=== PATIENT | female | born 1995 | race American Indian/Alaskan Native ===

== ENCOUNTER → 2024-10-12 | Outpatient (CLI) | payer MEDICAID, SELFPAY ==
--- NOTE | 2024-10-12 13:37 | XR_ITS ---
Examination: Bilateral AP knees standing single view AP oblique lateral left knee, AP lateral right knee TECHNIQUE: Bilateral AP knees standing single view flexion AP oblique lateral left knee, AP lateral right knee total 5 views Exam date and time: October 12, 2024 1421 hours INDICATIONS: Left knee pain beginning 3 days ago, rheumatoid arthritis diagnosis FINDINGS: Severe osteopenia Right femur orthopedic hardware Severe tricompartment joint narrowing No fractures IMPRESSION: Severe osteopenia Severe tricompartment joint narrowing
== END | disposition home or self-care (01) ==
PROVIDERS: PCP Physician Assistant; Referring Provider Nurse Practitioner Family; Visit Provider Nurse Practitioner Family
DX: M85.862 Other specified disorders of bone density and structure, left lower leg (principal); M85.861 Other specified disorders of bone density and structure, right lower leg; M25.862 Other specified joint disorders, left knee; M25.861 Other specified joint disorders, right knee
CPT/HCPCS: 73562

== ENCOUNTER 2025-04-20 10:39 | Emergency (ER) | payer MEDICAID, SELFPAY ==
[2025-04-20 10:39] VITALS: BMI 26.6
--- NOTE | 2025-04-20 10:40 | PC.NURSE ---
PT HERE WITH C/O VOMITING TODAY
[2025-04-20 10:41] VITALS: BP 111/57; PULSE 66; RESP 24; TEMP 36.9; O2SAT 100
--- NOTE | 2025-04-20 11:04 | EDNOTE_ITS ---
Nausea/Vomit./Diarrhea-RME/HPI General Chief complaint: Nausea/Vomiting/Diarrhea Stated complaint: NAUSEA/VOMITING Time Seen by Provider: 04/20/25 11:03 Arrival date/time: 04/20/25 10:39 RME / HPI RME / HPI Narrative: See [facility] for Dr. Hankins's HPI documentation. Related Data Previous Rx's ?Medication ?Instructions ?Recorded tramadol 37.5 mg-acetaminophen 325 1 tab PO Q6H PRN pa in #30 tabs 10/25/ mg tablet (Ultracet) ciprofloxacin HCl 500 mg tablet 500 mg PO BID 5 days # 10 tabs 04/20/25 (Cipro) lorazepam 1 mg tablet (Ativan) 1 mg PO BID PRN vomitin g #20 tabs 04/20/25 metronidazole 500 mg tablet 500 mg PO BID 5 days #10 t abs 04/20/25 ondansetron 4 mg disintegrating 4 mg PO TID PRN nausea and 04/20/25 tablet vomiting 30 days #10 tabs Allergies Allergy/AdvReac Type Severity Reaction Status Date / Time No Known Allergies Allergy Verified 04/20/25 10:47 Review of Systems Review of Systems Systems Reviewed: All systems reviewed, normal except as documented Past Medical History Past Medical History GASTROINTESTINAL: Positive Gastrointestinal Disorders (H-PYLORI) MUSCULOSKELETAL: Positive Rheumatoid Arthritis Social History SMOKING STATUS: Never smoker ED Exam Narrative Physical exam: See [facility] for Dr. Hankins's physical exam documentation. Course Quality Measures none Orders Category Date Time Status Bedside COVID-19 Antigen Test NOW Care 04/20/25 11:05 Completed Saline [Insert IV] NOW Care 04/20/25 11:[address] abdomen pelvis wo con Stat Exams 04/20/25 11:07 Completed Alcohol, Blood Medical Stat Lab 04/20/25 11:52 Completed Amylase Stat Lab 04/20/25 11:52 Completed Beta Hydroxybutyrate Stat Lab 04/20/25 11:52 Completed Bilirubin,Direct Stat Lab 04/20/25 11:52 Completed CBC Stat Lab 04/20/25 11:52 Completed CMP [Comprehensive Metabolic Panel] Stat Lab 04/20/25 11:52 Completed HCG,Qualitative Serum Stat Lab 04/20/25 11:52 Completed Influenza A & B Rapid Panel Stat Lab 04/20/25 12:03 Completed Lipase Stat Lab 04/20/25 11:52 Completed Magnesium Stat Lab 04/20/25 11:52 Completed Famotidine Inj [Pepcid Inj] Med 04/20/25 11:07 Discontinued 20 mg IVP X1 ONE Ketorolac Inj [Toradol Inj] Med 04/20/25 11:07 Discontinued 30 mg IVP X1 ONE LORazepam [Ativan Inj] Med 04/20/25 11:06 Discontinued 1 mg IVP X1 ONE LORazepam [Ativan Inj] Med 04/20/25 13:34 Discontinued 1 mg IVP X1 ONE Metoclopramide Inj [Reglan Inj] Med 04/20/25 11:12 Discontinued 10 mg IVP X1 ONE Ondansetron Inj [Zofran Inj] Med 04/20/25 11:07 Discontinued 4 mg IVP X1 ONE Pantoprazole Inj [Protonix Inj] Med 04/20/25 11:07 Discontinued 40 mg IVP X1 ONE Ringers Lactated 1000 ml [Lactated Ringers] 1,000 ml Med 04/20/25 13:35 Discontinued IV 1,000 mls/hr Sodium Chloride 0.9% 1000 ml [Ns] 1,000 ml Med 04/20/25 11:07 Discontinued IV 999 mls/hr cefTRIAXone/D5w 1gm IV premix [Rocephin/D5w 1gm IV Med 04/20/25 13:51 Discontinued premix] 1 gm in 50 ml IV X1 metroNIDAZOLE/NS 500 MG IVPB [Flagyl 500 mg IV] Med 04/20/25 13:51 Discontinued 500 mg in 100 ml IV X1 Vital Signs Vital signs: Vital Signs Temperature 98.5 F 04/20/25 10:41 Pulse Rate 66 04/20/25 10:41 Respiratory Rate 24 H 04/20/25 10:41 Blood Pressure 111/57 L 04/20/25 10:41 Pulse Oximetry (%) 100 04/20/25 10:41 Oxygen Delivery Method Nasal Cannula 04/20/25 10:41 Oxygen Flow Rate 6 04/20/25 10:41 Nausea/Vomiting/Diarrhea MDM Narrative MDM Narrative:: This section includes all my notes and documentations, including HPI, PE, and ED course. Walt Hankins MD HPI: 29-year-old female here with vomiting and abdominal pain and diarrhea since yesterday. Had cholecystectomy and an appendectomy and in the past. No other complaints. ROS: All negative except as documented in HPI. Physical Exam: General: Alert and oriented. Eyes: Conjunctivae and lids clear. ENT: No nasal congestion. Neck: Supple. Heart: RRR. Lungs: No respiratory distress. Good air movement. No rhonchi, wheezing, rales. Abdomen: Soft and nontender. Normal bowel sounds. No distension. No rebound or guarding. Back: No CVA tenderness. Skin: Warm and dry. Neuro: Alert and oriented X 3. I reviewed EMS notes. I reviewed all diagnostic test results: My review of the CT abdomen/pelvis report is colitis. Blood tests unremarkable. Covid/Influenza are negative. At this point, diagnoses include: Colitis Treatment here included: IVF Ativan 1 mg IV Zofran 4 mg IV Reglan 10 mg IV Pepcid 20 mg IV Pantoprazole 40 mg IV Toradol 30 mg IV Rocephin 1 gram IV Flagyl 500 mg IV We needed multiple medications to help the patient during the long ED course. I discussed the case with Dr. Nieto (our GI). About the presentation and exam and diagnostics and treatments here. And possible further care in the hospital. Recommended outpatient management. Significant improvement noted. Based on my best medical judgment, made decision no further evaluation or treatment indicated at this time. Patient understands and agrees to the discharge instructions customized and printed, see below. Discharge instructions from Dr. Hankins: 1. After evaluation, your symptoms are due to colitis, infection/inflammation of your colon. 2. Take Cipro and Flagyl for the infection. 3. Zofran and Ativan for nausea/vomiting. 4. Avoid marijuana use which can cause chronic abdominal pain and vomiting. 5. Clear liquid diet for 24 hours then advance as tolerated. 6. To prevent dehydration, increase oral fluid and maintain clear urine.? If dark or yellow, increase oral fluid. 7. See a private doctor on 04/23/2025 for recheck. Ask to review all test results and official radiology reports, to make sure you receive all necessary follow-ups and monitoring. To assess for serious intra-abdominal condition, ask for help with more investigation not available here in the ER.? Such as EGD or scoping the stomach, colonoscopy or scoping the colon, and referral to see tanker service attendant. 8. Seek immediate medical care with worsening, fever, or with any concerns. Walt Hankins MD Patient data External records reviewed:: [facility] previous records and EMS form Clinical information provided by:: patient and EMS Social determinants that could affect healthcare access:: none Patient has the following chronic illnesses:: Hx of H. Pylori. No chronic medical hx reported How is presenting disease/condition affected by chronic disease/condition?: no chronic disease Evaluation data The following diagnostics were reviewed and interpreted by me:: lab results and radiology exam(s) Lab and/or radiology exams considered but not ordered:: None Interpretation Summary: I reviewed all diagnostic test results: My review of the CT abdomen/pelvis report is colitis. Blood tests unremarkable. Covid/Influenza are negative. Medications / Prescriptions Medications / Prescriptions considered but not ordered:: None Medication administrations:: Medication Administration History Discontinued Medications Famotidine (Famotidine Inj 10 Mg/Ml Vial 2 Ml) 20 mg IVP X1 ONE Stop: 04/20/25 11:08 Last Admin: 04/20/25 11:45 Dose: 20 mg Documented By: [facility] Sodium Chloride (Ns) 1,000 mls @ 999 mls/hr IV .Q1H1M ONE Stop: 04/20/25 12:07 Last Infusion: 04/20/25 13:49 Dose: Infused Documented By: Admin: 04/20/25 11:25 Dose: 999 mls/hr Documented By: [facility] Lactated Ringer's (Lactated Ringers) 1,000 mls @ 1,000 mls/hr IV .Q1H ONE Stop: 04/20/25 14:34 Last Infusion: 04/20/25 15:29 Dose: Infused Documented By: Admin: 04/20/25 13:56 Dose: 1,000 mls/hr Documented By: BD Ceftriaxone Sodium/Dextrose (Rocephin/D5w 1gm Iv Premix) 1 gm in 50 mls @ 100 mls/hr IV X1 ONE Stop: 04/20/25 14:20 Last Infusion: 04/20/25 14:53 Dose: Infused Documented By: Admin: 04/20/25 14:03 Dose: 100 mls/hr Documented By: BD Metronidazole (Flagyl 500 Mg Iv) 500 mg in 100 mls @ 100 mls/hr IV X1 ONE Stop: 04/20/25 14:50 Last Infusion: 04/20/25 15:30 Dose: Infused Documented By: Admin: 04/20/25 14:55 Dose: 100 mls/hr Documented By: BD Ketorolac Tromethamine (Ketorolac Inj 30 Mg/Ml Vial) 30 mg IVP X1 ONE Stop: 04/20/25 11:08 Last Admin: 04/20/25 11:51 Dose: 30 mg Documented By: C Lorazepam (Lorazepam 2 Mg/Ml Vial) 1 mg IVP X1 ONE Stop: 04/20/25 11:07 Last Admin: 04/20/25 11:12 Dose: Not Given Documented By: [facility] Non-Admin Reason: Cancelled by Provider Lorazepam (Lorazepam 2 Mg/Ml Vial) 1 mg IVP X1 ONE Stop: 04/20/25 13:35 Last Admin: 04/20/25 13:56 Dose: 1 mg Documented By: BD Metoclopramide HCl (Metoclopramide Inj 5 Mg/Ml Vial 2 Ml) 10 mg IVP X1 ONE; Protocol Stop: 04/20/25 11:13 Last Admin: 04/20/25 11:43 Dose: 10 mg Documented By: [facility] Ondansetron HCl (Ondansetron Inj 2 Mg/Ml Inj 2 Ml) 4 mg IVP X1 ONE; Protocol Stop: 04/20/25 11:08 Last Admin: 04/20/25 11:27 Dose: 4 mg Documented By: [facility] Pantoprazole Sodium (Pantoprazole Inj 40 Mg Vial) 40 mg IVP X1 ONE Stop: 04/20/25 11:08 Last Admin: 04/20/25 11:48 Dose: 40 mg Documented By: [facility] Treatment here included: IVF Ativan 1 mg IV Zofran 4 mg IV Reglan 10 mg IV Pepcid 20 mg IV Pantoprazole 40 mg IV Toradol 30 mg IV Rocephin 1 gram IV Flagyl 500 mg IV We needed multiple medications to help the patient during the long ED course. Consultations Consultation(s) initiated? (list below): Yes Consultation #1 (Physician, Specialty, Details): I discussed the case with Dr. Nieto (our GI). About the presentation and exam and diagnostics and treatments here. And possible further care in the hospital. Recommended outpatient management. Time: 13:50 Diagnosis Nausea Differential Diagnosis: food poisoning, gastroenteritis, clostridium diff icile infection, drug-induced nausea and vomiting, dehydration and other (colitis ) Most likely diagnosis given after review of the tests above:: Colitis Admission Indicated Admission indicated?: not indicated Explain why admission is indicated or not indicated:: With significant improvement and no condition needing emergent intervention, there was no indication for admission. Admission Request Was there a request for admission?: No Disposition Plan Disposition Plan: Discharge Discharge Attestation Discharge Attestation: The patient and all family members were given an opportunity to ask questions and understood the discharge instructions. Discharge instructions specifically effects, indications for sooner follow up or return to the emergency department, and the expected course of current diagnosis. Patient condition: Stable Discharge Plan Plan Patient Disposition: HOME (Self Care) Prescriptions/Referrals Prescriptions/Med Rec: New metronidazole 500 mg tablet 500 mg PO BID 5 Days Qty: 10 0RF ciprofloxacin HCl [Cipro] 500 mg tablet 500 mg PO BID 5 Days Qty: 10 0RF ondansetron 4 mg tablet,disintegrating 4 mg PO TID PRN (Reason: nausea and vomiting) 30 Days Qty: 10 0RF lorazepam [Ativan] 1 mg tablet 1 mg PO BID MDD 2 PRN (Reason: vomiting) Qty: 20 0RF No Action tramadol-acetaminophen [Ultracet] 37.5-325 mg tablet 1 tab PO Q6H PRN (Reason: pain) Qty: 30 0RF Referrals: No Primary/Family,Physician [Primary Care Provider] - In 1 week Problem List Clinical Impression: Colitis Patient/Caregiver Discharge Instructions Discharge Activity: activity as tolerated Education Materials: Understanding Colitis Additional Instructions: Discharge instructions from Dr. Hankins: 1. After evaluation, your symptoms are due to colitis, infection/inflammation of your colon. 2. Take Cipro and Flagyl for the infection. 3. Zofran and Ativan for nausea/vomiting. 4. Avoid marijuana use which can cause chronic abdominal pain and vomiting. 5. Clear liquid diet for 24 hours then advance as tolerated. 6. To prevent dehydration, increase oral fluid and maintain clear urine.? If dark or yellow, increase oral fluid. 7. See a private doctor on 04/23/2025 for recheck. Ask to review all test results and official radiology reports, to make sure you receive all necessary follow-ups and monitoring. To assess for serious intra-abdominal condition, ask for help with more investigation not available here in the ER.? Such as EGD or scoping the stomach, colonoscopy or scoping the colon, and referral to see tanker service attendant. 8. Seek immediate medical care with worsening, fever, or with any concerns. Print Language: Nauruan Stand Alone Forms: [facility] Award Info., Patient Portal Info Letter
--- NOTE | 2025-04-20 11:07 | XR_ITS ---
Examination: CT abdomen and pelvis without contrast. Coronal 3-D reconstructions. Sagittal 2-D reconstructions. Date and time of exam: April 20, 2025, 1309 hours, comparison May 07, 2014 INDICATIONS: Generalized abdominal pain nausea vomiting diarrhea today CTDI: vol (mGy): 6.06 DLP: (mGycm): 308 Technique: Axial images of the abdomen have been obtained, 3 mm slice thickness Intravenous contrast material has not been administered. Low dose protocols were performed. One or more of the following dose reduction techniques were used; automated exposure control, adjustment of the mA and/or KV according to patient size, use of iterative reconstruction technique. Findings: No focal liver or splenic lesions Absent gallbladder No pancreatic or adrenal mass No renal or ureteral calculi, no hydronephrosis 15 mm fat-containing umbilical hernia Aorta is normal in size No bowel obstruction Absent appendix Fatty replacement in the harding of the colon seen with prior colitis No diverticulitis Retroverted uterus No adnexal mass No free fluid in the pelvis Bladder intact Osseous tractors intact IMPRESSION: No acute process in the abdomen or pelvis Findings consistent with prior episodes of diffuse colitis
[2025-04-20] MEDS: SODIUM CHLORIDE 0.9% 1000 ML 1,000 ML 999 ML IV (11:25)
[2025-04-20] MEDS: ONDANSETRON INJ 2 MG/ML INJ 2 ML 4 MG IVP (11:27)
[2025-04-20] MEDS: METOCLOPRAMIDE INJ 5 MG/ML VIAL 2 ML 10 MG IVP (11:43)
[2025-04-20] MEDS: FAMOTIDINE INJ 10 MG/ML VIAL 2 ML 20 MG IVP (11:45)
[2025-04-20] MEDS: KETOROLAC INJ 30 MG/ML VIAL IVP (11:51)
[2025-04-20 12:06] VITALS: BP 129/80; PULSE 59; RESP 24; TEMP 36.9; O2SAT 97
[2025-04-20 12:24] LABS: Basophils # (Auto) 0.1 Thou/mm3 (0.0-0.2); Basophils % (Auto) 0 % (0-2.5); Eosinophils # (Auto) 0.0 Thou/mm3 (0.0-0.5); Eosinophils % (Auto) 0 % (0-10); Hematocrit 36.6 % (36.0-46.0); Hemoglobin 12.4 g/dL (12.0-16.0); Immature Granulocytes Auto 0.06 Thou/mm3 (0.00-0.00); Lymphocytes # (Auto) 2.6 Thou/mm3 (1.0-4.8); Lymphocytes % (Auto) 23 % (10-50); Mean Corpuscular HGB Conc 33.9 g/dl (31.0-37.0); Mean Corpuscular Hemoglobin 31.6 pg (25.0-35.0); Mean Corpuscular Volume 93 fL (80-100); Monocytes # (Auto) 0.3 Thou/mm3 (0.0-0.8); Monocytes % (Auto) 3 % (0-12); Neutrophils # (Auto) 8.3 Thou/mm3 (1.8-7.7); Neutrophils % (Auto) 74 % (37-80); Nucleated Red Blood Cell # 0.00 Thou/mm3 (0.00-0.00); Nucleated Red Blood Cell % 0 /100 WBC (0); Platelet Count 480 Thou/mm3 (140-440); RDW Standard Deviation 45.2 fL (36.4-46.3); Red Blood Count 3.92 Miln/mm3 (4.00-5.20); White Blood Count 11.3 Thou/mm3 (3.6-11.0)
[2025-04-20 12:28] LABS: Beta Hydroxybutyrate 3.0 mmol/L (<0.6)
[2025-04-20 12:36] LABS: HCG,Qualitative Serum Negative
[2025-04-20 12:42] LABS: Influenza A Ag Negative; Influenza B Ag Negative
[2025-04-20 12:45] LABS: Alanine Aminotransferase 30 U/L (10-49); Albumin, Serum 5.1 gm/dL (3.5-5.0); Albumin/Globulin Ratio 1.7 (1.2-2.2); Alcohol, Blood Medical < 3.0 mg/dL (0-10.0); Alkaline Phosphatase 116 U/L (46-116); Amylase 86 U/L (30-118); Anion Gap 21 (7-16); Aspartate Amino Transferase 35 U/L (0-34); BUN/Creatinine Ratio 14 Ratio (12-20); Bilirubin,Direct 0.2 mg/dL (0.0-0.3); Bilirubin,Total 0.6 mg/dL (0.3-1.2); Blood Urea Nitrogen 10 mg/dL (9-23); Calcium 10.0 mg/dL (8.3-10.6); Calcium (Corrected) 10.0 mg/dL (8.5-10.1); Carbon Dioxide 15.5 mMol/L (20.0-31.0); Chloride 107 mMol/L (98-107); Creatinine (Component) 0.7 mg/dL (0.6-1.3); Estimated Creatinine Clearance 91.7 mL/min (>60); Globulin 3.0 gm/dL (2.3-3.5); Glucose 99 mg/dL (74-106); Lipase 25 U/L (12-53); Magnesium 2.0 mg/dL (1.6-2.6); Osmolality,Calculated 283 (275-295); Potassium 3.5 mMol/L (3.4-5.1); Sodium 143 mMol/L (136-145); Total Protein 8.1 gm/dL (5.7-8.2); eGFR > 60 See Note
--- NOTE | 2025-04-20 13:50 | PC.NURSE ---
pt refused in and out cath
[2025-04-20] MEDS: LORazepam 2 MG/ML VIAL 1 MG IVP (13:56)
[2025-04-20] MEDS: RINGERS LACTATED 1000 ML 1,000 ML IV (13:56)
[2025-04-20 14:00] VITALS: BP 104/75; PULSE 60; RESP 16; TEMP 36.9; O2SAT 98
[2025-04-20] MEDS: cefTRIAXone/D5w 1gm IV premix 1 GM/50 ML BAG IV (14:03)
[2025-04-20] MEDS: metroNIDAZOLE/NS 500 MG IVPB 500 MG/100 ML BAG 100 MG IV (14:55)
[2025-04-20 15:15] VITALS: BP 106/60; PULSE 76; RESP 16; TEMP 36.9; O2SAT 94
== END 2025-04-20 15:41 | disposition home or self-care (01) ==
PROVIDERS: Emergency Provider Emergency Medicine
DX: K52.9 Noninfective gastroenteritis and colitis, unspecified (principal)
CPT/HCPCS: 36415; 74176; 80053; 80320; 81001; 82010; 82150; 82248; 83690; 83735; 84703; 85025; 87502; 87811; 96361; 96365; 96375; 99284; J0696; J1885; J2060; J2405; J2470; J2765; J3490; J7030; J7120; G0480; J1836

== ENCOUNTER 2025-04-27 19:14 | Emergency (ER) | payer MEDICAID, SELFPAY ==
[2025-04-27 19:55] VITALS: BMI 27.0
[2025-04-27 20:05] VITALS: BP 127/85; PULSE 72; RESP 18; TEMP 36.7; O2SAT 98
--- NOTE | 2025-04-27 20:34 | PD.EDRME ---
Rapid Medical Screening Exam RME Arrival date/time: 04/27/25 19:14 Chief Complaint: Extremity Injury, Lower Time Seen by Provider: 04/27/25 20:13 Vital signs: Vital Signs Temperature 98.1 F 04/27/25 20:05 Pulse Rate 72 04/27/25 20:05 Respiratory Rate 18 04/27/25 20:05 Blood Pressure 127/85 H 04/27/25 20:05 Pulse Oximetry (%) 98 04/27/25 20:05 Oxygen Delivery Method Room Air 04/27/25 20:05 E Narrative: Left knee buckled upon standing, c/o pain and swelling. Hx RA and femoral condyle fx in 2021. Exam: Moderate left knee tenderness, swelling Clinical Impression: Knee pain
--- NOTE | 2025-04-27 20:35 | XR_ITS ---
Examination: Knee, left, 3 views Technique: Knee AP, lateral, oblique 3 views Date and time of exam: April 27, 2025, 2046 hours INDICATIONS: Joint locking and knee pain years. FINDINGS: Nonstandard views Severe osteopenia No acute fracture Moderate tricompartment joint narrowing IMPRESSION: Limited study Severe osteopenia No acute fracture
--- NOTE | 2025-04-27 22:27 | EDNOTE_ITS ---
ED Extremity Problem RME/HPI General Chief complaint: Extremity Injury, Lower Stated complaint: KNEE PAIN Time Seen by Provider: 04/27/25 20:13 Arrival date/time: 04/27/25 19:14 RME / HPI RME / HPI Narrative: Left knee buckled upon standing, c/o pain and swelling. Hx RA and femoral condyle fx in 2021. DR. MALIN MAIN ED EVALUATION: Patient presenting with progressive painful left knee swelling for a few hours in the absence of trauma. Notes Hx of RA and on immunosuppressant therapy. PMH: RA PSH: Non-contributory Allergies: None reported Social: Non-smoker, Non-drinker, No illicit drug abuse Exam: Moderate left knee tenderness, swelling Impression: Knee pain Related Data Previous Rx's ?Medication ?Instructions ?Recorded tramadol 37.5 mg-acetaminophen 325 1 tab PO Q6H PRN pa in #30 tabs 10/25/21 mg tablet (Ultracet) lorazepam 1 mg tablet (Ativan) 1 mg PO BID PRN vomitin g #20 tabs 04/20/25 ondansetron 4 mg disintegrating 4 mg PO TID PRN nausea and 04/20/25 tablet vomiting 30 days #10 tabs hydrocodone 5 mg-acetaminophen 325 1 tab PO Q8H PRN pa in #20 tabs 04/28/25 mg tablet prednisone 20 mg tablet See Taper PO QDAY 5 days #10 tabs 04/28/25 Allergies Allergy/AdvReac Type Severity Reaction Status Date / Time No Known Allergies Allergy Verified 04/27/25 19:52 ED Exam Narrative Physical exam: GEN. APPEARANCE: The patient is chronically ill-appearing. Patient has good eye contact. Patient is cooperative. VITALS: All vitals were reviewed and the pulse ox is 99%, which is normal according to my interpretation HEENT: Normocephalic, atraumatic and nontender. Pupils are equal and reactive. Oral mucosa is moist. NECK: Supple, nontender, no meningismus, no JVD. There is no thyromegaly and no lymphadenopathy. CHEST: Nontender on palpation no deformity and no crepitus. CARDIOVASCULAR: Heart regular rhythm, no murmur or gallop rub or extra beats. LUNGS: Clear to auscultation bilaterally with symmetrical chest rise. No laboring tachypnea or wheezing. No intercostal subcostal retraction. No rales and no rhonchi. ABDOMEN: Soft, flat, nontender to palpation, no guarding or rebound tenderness. There are no abnormal masses palpated. No pulsatile masses or bruits. Active and normal bowel sounds. EXTREMITIES: Normal inspection and palpation. No edema. No cyanosis. Patient is able to move all 4 extremities well. Left Knee: 3+ circumferential edema with noted peripatellar effusion, no warmth, erythema, and limited ROM, distal function intact. SKIN: Warm and dry, no rashes noted. MUSCULOSKELETAL: No lumbar or midline bony tenderness. There is no CVA tenderness. No paraspinal muscle spasm or tenderness. NEURO: Cranial nerves II through XII grossly intact. There are no focal neurologic deficits noted. GCS 15. PSYCHIATRIC: Patient is in normal mood and affect, cooperative. LYMPHATICS: No major lymphadenopathy noted. Course Quality Measures none Orders Category Date Time Status XR knee LT 3V Stat Exams 04/27/25 20:35 Completed CBC [CBC] Stat Lab 04/27/25 22:40 Completed CMP [Comprehensive Metabolic Panel] Stat Lab 04/27/25 22:40 Completed ESR [Sed Rate (ESR)] Stat Lab 04/27/25 22:40 Completed Urinalysis, C/S if Indicated Stat Lab 04/27/25 22:27 Ordered HYDROcodone/APAP 10/325 [[place] 10/325] Med 04/27/25 20:35 Discontinued 1 tab PO X1 ONE Lidocaine 1% 20 ml [Xylocaine 1% 20 ML] Med 04/28/25 00:53 Discontinued 20 ml INFL X1 ONE Vital Signs Vital signs: Vital Signs Temperature 98.1 F 04/27/25 20:05 Pulse Rate 72 04/27/25 20:05 Respiratory Rate 18 04/27/25 20:05 Blood Pressure 127/85 H 04/27/25 20:05 Pulse Oximetry (%) 98 04/27/25 20:05 Oxygen Delivery Method Room Air 04/27/25 20:05 PROCEDURES: Joint Aspiration/Injection Joint Asp./Inject. 1: Time Out Performed: Yes Side of body: left Joint Aspirated: knee Ultrasound Guidance: No Skin Prep: Povidone-Iodine1% Local Anesthetic: lidocaine 1% Amount of anesthesia used (mL): 5 Needle Size Used: 18G Fluid Obtained: bloody (Dark grossly bloody aspirate) Total fluid obtained (mL): 20 Patient Tolerated Procedure: no complications Complications: none Additional Comments: Compressive dressing added. Extremity Problem MDM Narrative MDM Narrative:: Scribe Attestation: I, Celine Aparicio, am scribing for and in the presence of Dr. Ortega. Provider Notation: Although this document has been carefully reviewed, there may still be some phonetic and other typographical errors. These errors are purely g rammatical due to imperfections in the software program and should not be construed in any way to compromise the substance of the patient's medical care during this visit. Patient presenting with progressive painful left knee swelling for a few hours in the absence of trauma. Notes Hx of RA and on immunosuppressant therapy. Please see PE findings. Laboratory markers including CBC and serum chemistries were essentially normal. ESR mildly elevated at 30. Patient underwent joint aspiration with return of gross dark blood, approximately 20 cc. Compressive dressing applied, then discharged to home on combination of steroids and low- dose narcotic analgesics. 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 Patient data External records reviewed:: [facility] previous records (Reviewed prior ED records from 04/20/25. Patient was seen for Colitis.) Clinical information provided by:: patient Social determinants that could affect healthcare access:: none Patient has the following chronic illnesses:: RA How is presenting disease/condition affected by chronic disease/condition?: exacerbated by Evaluation data The following diagnostics were reviewed and interpreted by me:: lab results and radiology exam(s) Lab and/or radiology exams considered but not ordered:: None Interpretation Summary: RADIOLOGY Knee X-Ray: FINDINGS: Nonstandard views Severe osteopenia No acute fracture Moderate tricompartment joint narrowing IMPRESSION: Limited study Severe osteopenia No acute fracture Medications / Prescriptions Medications or Prescriptions considered but not ordered:: None Medication administrations:: Medication Administration History Discontinued Medications Hydrocodone Bitart/Acetaminophen (Hydrocodone/Apap Tab) 1 tab PO X1 ONE Stop: 04/27/25 20:36 Last Admin: 04/27/25 20:40 Dose: 1 tab Documented By: BD Lidocaine HCl (Lidocaine Hcl 1% 20 Ml Vial) 20 ml INFL X1 ONE Stop: 04/28/25 00:54 Last Admin: 04/28/25 01:33 Dose: 20 ml Documented By: DT Comments: ADMINISTERED BY PROVIDER See above if any Consultations Consultation(s) initiated? (list below): No Diagnosis Extremity Problem Differential Diagnosis: herpes zoster, gout, superficial thrombophlebitis, lower extremity edema and other (Bursa) Most likely diagnosis given after review of the tests above:: Hemarthrosis involving knee joint Admission Indicated Admission indicated?: not indicated Explain why admission is indicated or not indicated:: Patient does not meet admission criteria Admission Request Was there a request for admission?: No Disposition Plan Disposition Plan: Discharge Discharge Attestation Discharge Attestation: The patient and all family members were given an opportunity to ask questions and understood the discharge instructions. Discharge instructions specifically effects, indications for sooner follow up or return to the emergency department, and the expected course of current diagnosis. Patient condition: Stable Discharge Plan Plan Patient Disposition: HOME (Self Care) Discharge Disposition comment: Stable Prescriptions/Referrals Prescriptions/Med Rec: No Action tramadol-acetaminophen [Ultracet] 37.5-325 mg tablet 1 tab PO Q6H PRN (Reason: pain) Qty: 30 0RF ondansetron 4 mg tablet,disintegrating 4 mg PO TID PRN (Reason: nausea and vomiting) 30 Days Qty: 10 0RF lorazepam [Ativan] 1 mg tablet 1 mg PO BID MDD 2 PRN (Reason: vomiting) Qty: 20 0RF Referrals: Vincent Roldan PA-C [Primary Care Provider] - In 1 week Problem List Clinical Impression: Hemarthrosis involving knee joint Impression comment: Hemarthrosis Patient/Caregiver Discharge Instructions Discharge Activity: as per physical therapy and activity as tolerated Other Activity Instructions:: Ice elevation x 24 hours. Education Materials: ED Rheumatoid Arthritis Additional Instructions: Ice elevation/maintain compressive dressing for 48 hours. Medication as directed. Print Language: Sami Stand Alone Forms: [facility] Award Info., Patient Portal Info Letter
[2025-04-27 23:07] LABS: Sed Rate (ESR) 34 mm/hr (0-20)
[2025-04-27 23:09] LABS: Basophils # (Auto) 0.0 Thou/mm3 (0.0-0.2); Basophils % (Auto) 0 % (0-2.5); Eosinophils # (Auto) 0.0 Thou/mm3 (0.0-0.5); Eosinophils % (Auto) 0 % (0-10); Hematocrit 33.8 % (36.0-46.0); Hemoglobin 11.4 g/dL (12.0-16.0); Immature Granulocytes Auto 0.04 Thou/mm3 (0.00-0.00); Lymphocytes # (Auto) 1.7 Thou/mm3 (1.0-4.8); Lymphocytes % (Auto) 18 % (10-50); Mean Corpuscular HGB Conc 33.7 g/dl (31.0-37.0); Mean Corpuscular Hemoglobin 33.0 pg (25.0-35.0); Mean Corpuscular Volume 98 fL (80-100); Monocytes # (Auto) 0.2 Thou/mm3 (0.0-0.8); Monocytes % (Auto) 3 % (0-12); Neutrophils # (Auto) 7.2 Thou/mm3 (1.8-7.7); Neutrophils % (Auto) 78 % (37-80); Nucleated Red Blood Cell # 0.00 Thou/mm3 (0.00-0.00); Nucleated Red Blood Cell % 0 /100 WBC (0); Platelet Count 277 Thou/mm3 (140-440); RDW Standard Deviation 48.3 fL (36.4-46.3); Red Blood Count 3.45 Miln/mm3 (4.00-5.20); White Blood Count 9.2 Thou/mm3 (3.6-11.0)
[2025-04-27 23:23] LABS: Alanine Aminotransferase 51 U/L (10-49); Albumin, Serum 4.7 gm/dL (3.5-5.0); Albumin/Globulin Ratio 1.6 (1.2-2.2); Alkaline Phosphatase 101 U/L (46-116); Anion Gap 8 (7-16); Aspartate Amino Transferase 44 U/L (0-34); BUN/Creatinine Ratio 15 Ratio (12-20); Bilirubin,Total 0.3 mg/dL (0.3-1.2); Blood Urea Nitrogen 9 mg/dL (9-23); Calcium 8.9 mg/dL (8.3-10.6); Calcium (Corrected) 8.9 mg/dL (8.5-10.1); Carbon Dioxide 22.0 mMol/L (20.0-31.0); Chloride 111 mMol/L (98-107); Creatinine (Component) 0.6 mg/dL (0.6-1.3); Estimated Creatinine Clearance 107.7 mL/min (>60); Globulin 3.0 gm/dL (2.3-3.5); Glucose 95 mg/dL (74-106); Osmolality,Calculated 279 (275-295); Potassium 3.6 mMol/L (3.4-5.1); Sodium 141 mMol/L (136-145); Total Protein 7.7 gm/dL (5.7-8.2); eGFR > 60 See Note
[2025-04-28 00:28] VITALS: BP 113/78; PULSE 71; RESP 14; TEMP 37; O2SAT 99
[2025-04-28] MEDS: LIDOCAINE HCL 1% 20 ML VIAL INFL (01:33)
[2025-04-28 02:08] VITALS: BP 115/85; PULSE 70; RESP 14; TEMP 37; O2SAT 99
== END 2025-04-28 02:09 | disposition home or self-care (01) ==
PROVIDERS: Emergency Provider Emergency Medicine; PCP Physician Assistant
DX: M25.062 Hemarthrosis, left knee (principal)
CPT/HCPCS: 20610; 36415; 73562; 80053; 81001; 85025; 85652; 99283; J3490; A9270

== ENCOUNTER 2025-06-08 11:11 | Emergency (ER) | payer MEDICAID, SELFPAY ==
[2025-06-08 11:15] VITALS: BP 121/94; PULSE 122; RESP 25; TEMP 36.7; O2SAT 99
[2025-06-08 11:38] VITALS: BMI 25.8
--- NOTE | 2025-06-08 11:53 | PD.EDRME ---
Rapid Medical Screening Exam E Arrival date/time: 06/08/25 11:11 This is a 29-year-old female that comes into the emergency room with complaints of nausea vomiting diarrhea. Patient complains of left flank pain. Patient states she has rheumatoid arthritis. I have greeted and performed a focused initial assessment of this patient. Initial appropriate labs ordered at this time. A comprehensive ED assessment and evaluation of the patient and analysis of all test and completion of medical decision making process will be conducted by additional ED provider. Chief Complaint: Nausea/Vomiting/Diarrhea Time Seen by Provider: 06/08/25 11:52 Vital signs: Vital Signs Temperature 98.0 F 06/08/25 11:15 Pulse Rate 122 H 06/08/25 11:15 Respiratory Rate 25 H 06/08/25 11:15 Blood Pressure 121/94 H 06/08/25 11:15 Pulse Oximetry (%) 99 06/08/25 11:15 Oxygen Delivery Method Room Air 06/08/25 11:15 Exam: BREATHING EVEN AND UNLABORED, SKIN WARM AND DRY, LEFT FLANK PAIN Clinical Impression: ABDOMINAL PAIN
[2025-06-08 12:22] LABS: Basophils # (Auto) 0.0 Thou/mm3 (0.0-0.2); Basophils % (Auto) 0 % (0-2.5); Eosinophils # (Auto) 0.0 Thou/mm3 (0.0-0.5); Eosinophils % (Auto) 0 % (0-10); Hematocrit 45.2 % (36.0-46.0); Hemoglobin 16.6 g/dL (12.0-16.0); Immature Granulocytes Auto 0.05 Thou/mm3 (0.00-0.00); Lymphocytes # (Auto) 1.5 Thou/mm3 (1.0-4.8); Lymphocytes % (Auto) 11 % (10-50); Mean Corpuscular HGB Conc 36.7 g/dl (31.0-37.0); Mean Corpuscular Hemoglobin 31.8 pg (25.0-35.0); Mean Corpuscular Volume 87 fL (80-100); Monocytes # (Auto) 0.8 Thou/mm3 (0.0-0.8); Monocytes % (Auto) 6 % (0-12); Neutrophils # (Auto) 10.4 Thou/mm3 (1.8-7.7); Neutrophils % (Auto) 82 % (37-80); Nucleated Red Blood Cell # 0.00 Thou/mm3 (0.00-0.00); Nucleated Red Blood Cell % 0 /100 WBC (0); Platelet Count 346 Thou/mm3 (140-440); RDW Standard Deviation 39.8 fL (36.4-46.3); Red Blood Count 5.22 Miln/mm3 (4.00-5.20); White Blood Count 12.8 Thou/mm3 (3.6-11.0)
[2025-06-08 12:38] LABS: Collection Type, Urine Voided
[2025-06-08 12:38] LABS: Alanine Aminotransferase 29 U/L (10-49); Albumin, Serum 5.5 gm/dL (3.5-5.0); Albumin/Globulin Ratio 1.4 (1.2-2.2); Alkaline Phosphatase 111 U/L (46-116); Anion Gap 23 (7-16); Aspartate Amino Transferase 35 U/L (0-34); BUN/Creatinine Ratio 16 Ratio (12-20); Bilirubin,Total 0.5 mg/dL (0.3-1.2); Blood Urea Nitrogen 24 mg/dL (9-23); Calcium 9.8 mg/dL (8.3-10.6); Calcium (Corrected) 9.8 mg/dL (8.5-10.1); Carbon Dioxide 16.4 mMol/L (20.0-31.0); Chloride 97 mMol/L (98-107); Creatinine (Component) 1.5 mg/dL (0.6-1.3); Estimated Creatinine Clearance 42.2 mL/min (>60); Globulin 3.9 gm/dL (2.3-3.5); Glucose 125 mg/dL (74-106); Lipase 34 U/L (12-53); Osmolality,Calculated 276 (275-295); Potassium 3.1 mMol/L (3.4-5.1); Sodium 136 mMol/L (136-145); Total Protein 9.4 gm/dL (5.7-8.2); eGFR 47 See Note
[2025-06-08] MEDS: ONDANSETRON ODT 4 MG TABRAP PO (12:41)
[2025-06-08 12:47] LABS: HCG Qualitative,Urine Negative
[2025-06-08 12:51] LABS: Bacteria,Urine Rare; Bilirubin,Urine 1+ (Negative); Blood,Urine Negative (Negative); Clarity,Urine Turbid (Clear/Hazy); Color,Urine Yellow (Lt Yel-Yel); Culture Indicated,Urine Not Indicated; Glucose, Urine Negative (Negative); Hyaline Casts,Urine < 1 /hpf (0-1); Ketones,Urine 3+ (Negative); Leukocyte Esterase,Urine Negative (Negative); Nitrite,Urine Negative (Negative); PH,Urine 5.5 (5.0-7.0); Protein,Urine 1+ (Neg - Trace); RBC,Urine 6 /hpf (0-3); Specific Gravity,Urine 1.023 (1.001-1.035); Squamous Epithelial Cell,Urine 22 /hpf (0-5); Urobilinogen,Urine 2.0 mg/dL (0.0-1.0); WBC,Urine 4 /hpf (0-5)
[2025-06-08 13:03] LABS: Amphetamine/Methamp Scrn,U Negative (Negative); Barbiturate Screen,Urine Negative (Negative); Benzodiazepines Screen,Urine Negative (Negative); Benzoylecgonine Screen, Ur Negative (Negative); Fentanyl Screen,Urine Negative (Negative); Opiate Screen,Urine Negative (Negative); THC Screen,Urine Positive (Negative)
[2025-06-08 14:09] LABS: Base Excess, Venous 0 (-3-3); O2 Saturation, Venous 79 % (96-97); PCO2, Venous 26 mmHg (36-56); PO2, Venous 40 mmHg (15-58); pH, Venous 7.52 (7.33-7.66)
[2025-06-08] MEDS: POTASSIUM CHL 10 mEq IVPB 10 MEQ/100 ML BAG 100 MEQ IV ×2 (14:10→15:43)
[2025-06-08] MEDS: PROCHLORPERAZINE INJ 5 MG/ML VIAL 2 ML 10 MG IV (14:10)
[2025-06-08] MEDS: RINGERS LACTATED 1000 ML 2,000 ML 999 ML IV (14:12)
--- NOTE | 2025-06-08 14:36 | PD.EDNV ---
Nausea/Vomit./Diarrhea-RME/HPI General Chief complaint: Nausea/Vomiting/Diarrhea Stated complaint: N/V X 2 DAYS, TROUBLE BREATHING, ABD PAIN Time Seen by Provider: 06/08/25 11:52 Arrival date/time: 06/08/25 11:11 RME / HPI RME / HPI Narrative: 06/08/25 11:11 This is a 29-year-old female that comes into the emergency room with complaints of nausea vomiting diarrhea. Patient complains of left flank pain. Patient states she has rheumatoid arthritis. I have greeted and performed a focused initial assessment of this patient. Initial appropriate labs ordered at this time. A comprehensive ED assessment and evaluation of the patient and analysis of all test and completion of medical decision making process will be conducted by additional ED provider. DR. CASON MAIN ED EVALUATION 29 year old female with history of Rheumatoid arthritis, H.pylori presents to the ED for evaluation of nausea, vomiting, and diarrhea beginning 4 days ago. Accompanied by pain to the left upper abdomen. States this morning there was blood in her emesis prompting ED visit. Reportedly had sick contacts with daughter who also had similar n/v/d just prior to onset of symptoms. Denies fevers, chills, chest pain,cough, shortness of breath, or urinary symptoms. Denies any recent changes to her medications. Exam: BREATHING EVEN AND UNLABORED, SKIN WARM AND DRY, LEFT FLANK PAIN Impression: ABDOMINAL PAIN Related Data Previous Rx's ?Medication ?Instructions ?Recorded tramadol 37.5 mg-acetaminophen 325 1 tab PO Q6H PRN pain #30 tabs 10/25/21 mg tablet (Ultracet) lorazepam 1 mg tablet (Ativan) 1 mg PO BID PRN vomiting #20 tabs 04/20/25 hydrocodone 5 mg-acetaminophen 325 1 tab PO Q8H PRN pain #20 tabs 04/28/25 mg tablet Allergies Allergy/AdvReac Type Severity Reaction Status Date / Time No Known Allergies Allergy Verified 06/08/25 11:15 Review of Systems Review of Systems Systems Reviewed: All systems reviewed, normal except as documented Past Medical History Past Medical History CARDIAC: Negative Congestive Heart Failure RESPIRATORY: Negative Chronic Obstructive Pulmonary Disease (COPD) GASTROINTESTINAL: Positive Gastrointestinal Disorders (H-PYLORI) GENITOURINARY: Negative Renal Disease MUSCULOSKELETAL: Positive Rheumatoid Arthritis ENDOCRINE: Negative Diabetes Mellitus Type 1 or Diabetes Mellitus Type 2 Social History SMOKING STATUS: Never smoker ED Exam Narrative Physical exam: Constitutional: Awake, alert, ill-appearing, uncomfortable. HEENT: Normocephalic, atraumatic, extraocular movements intact. CV: Tachycardic rate and rhythm, no murmurs/rubs/gallops Lungs: Clear to auscultation BL, no respiratory distress. Abd: Soft, nondistended, tender to palpation of left upper abdomen/left lateral abdomen. No rebound or guarding noted. Neuro: AAOx3, no acute neuro deficit noted. Skin: Warm, dry, intact Course Quality Measures none Orders Category Date Time Status CT Screening NOW Care 06/08/25 14:[address] abdomen pelvis w con Stat Exams 06/08/25 14:36 Completed CBC Stat Lab 06/08/25 12:02 Completed Comprehensive Metabolic Panel Stat Lab 06/08/25 12:02 Completed Drug Screen,Urine Stat Lab 06/08/25 12:17 Completed HCG Qualitative,Urine Stat Lab 06/08/25 12:17 Completed Lipase Stat Lab 06/08/25 12:02 Completed Urinalysis, C/S if Indicated Stat Lab 06/08/25 12:17 Completed VBG [Venous Blood Gas] Stat Lab 06/08/25 14:01 Completed Ondansetron Odt [Zofran Odt] Med 06/08/25 12:09 Discontinued 4 mg PO X1 ONE POTASSIUM CHL 10 mEq IVPB [Kcl Ivpb] Med 06/08/25 13:42 Discontinued 10 meq in 100 ml IV Q1H Prochlorperazine Inj [Compazine Inj] Med 06/08/25 13:42 Discontinued 10 mg IV X1 ONE Ringers Lactated 1000 ml [Lactated Ringers] 2,000 ml Med 06/08/25 13:41 Discontinued IV 999 mls/hr Vital Signs Vital signs: Vital Signs Temperature 98.0 F 06/08/25 11:15 Pulse Rate 122 H 06/08/25 11:15 Respiratory Rate 25 H 06/08/25 11:15 Blood Pressure 121/94 H 06/08/25 11:15 Pulse Oximetry (%) 99 06/08/25 11:15 Oxygen Delivery Method Room Air 06/08/25 11:15 Pulse ox is 99% on room air which is adequate. Nausea/Vomiting/Diarrhea MDM Narrative MDM Narrative:: 29-year-old female coming in for evaluation of nausea, vomiting, diarrhea ongoing for the past several days with some flecks of blood in vomitus today along with abdominal discomfort. Labs ordered revealing significant abnormalities including white blood cell count of 12.8, hemoglobin of 16.6 appearing hemoconcentrated, potassium of 3.1, CO2 16.4, anion gap of 23, creatinine of 1.5 with BUN of 24 consistent with an acute kidney injury. Given the abdominal pain, CT was ordered. IV fluids and potassium ordered. 1800: Care signed out to Dr. Márquez pending po challenge and final disposition. Patient data External records reviewed:: [facility] previous records Clinical information provided by:: patient Social determinants that could affect healthcare access:: none Patient has the following chronic illnesses:: Rheumatoid arthritis H.Pylori How is presenting disease/condition affected by chronic disease/condition?: uneffected by Evaluation data The following diagnostics were reviewed and interpreted by me:: lab results and radiology exam(s) Lab and/or radiology exams considered but not ordered:: None Interpretation Summary: Ordering Physician: Mary Cason MD Date of Service: 06/08/25 Procedure(s): CT abdomen pelvis w con Accession Number(s): [id number] cc: Clay(Bean),Yessi MOMIN; Philipp Blank MD; Mary Cason MD~ Examination: CT abdomen with intravenous contrast CT pelvis with intravenous contrast 2-D coronal reconstructions 2-D sagittal reconstructions Date and time of exam: June 08, 2025, 1709 hours, comparison April 20, 2025 INDICATIONS: Left flank pain nausea vomiting diarrhea and dehydration today. CTDI: vol (mGy) 7.42 DLP: (mGycm) 358 Technique: Multiple axial sections of the abdomen and pelvis have been obtained. 64 slice high-resolution scanner used. 3 mm axial sections have been obtained, post intravenous injection 30 cc [id number] 2-D sagittal, coronal reconstructions obtained. Low dose protocols were performed. One or more of the following dose reduction techniques were used; automated exposure control, adjustment of the mA and/or KV according to patient size, use of iterative reconstruction technique. Findings: No visualized liver or splenic lesion Absent gallbladder No extrahepatic biliary tract dilatation Normal pancreas normal adrenal glands No renal or ureteral calculi, no hydronephrosis Aorta normal size 13 mm fat-containing umbilical hernia Absent appendix No bowel obstruction or diverticulitis No nonspecific colitis or enteritis Retroverted uterus No uterine or adnexal mass Urinary bladder intact L5-S1, axial image 137, demonstrates 5 mm central left paracentral disc bulge displacing the left S1 nerve root Mild to moderate narrowing right hip joint, mild narrowing left hip joint IMPRESSION: No renal or ureteral calculi, no hydronephrosis Absent appendix No bowel obstruction diverticulitis, nonspecific colitis or enteritis L5-S1 5 mm central left paracentral disc bulge displacing the left S1 nerve root Dictated By: Philipp Blank MD Signed By: <Electronically signed by Philipp Blank MD in OV> 06/08/25 4515 Medications / Prescriptions Medications / Prescriptions considered but not ordered:: None Medication administrations:: Medication Administration History Discontinued Medications Lactated Ringer's (Lactated Ringers) 2,000 mls @ 999 mls/hr IV .Q2H1M ONE Stop: 06/08/25 15:41 Last Admin: 06/08/25 14:12 Dose: 999 mls/hr Documented By: CLARI Potassium Chloride (Kcl Ivpb) 10 meq in 100 mls @ 100 mls/hr IV Q1H ZINA Stop: 06/08/25 15:41 Last Admin: 06/08/25 15:43 Dose: 100 mls/hr Documented By: Infusion: 06/08/25 15:10 Dose: Infused Documented By: Admin: 06/08/25 14:10 Dose: 100 mls/hr Documented By: CLARI Ondansetron HCl (Ondansetron Odt 4 Mg Tabrap) 4 mg PO X1 ONE; Protocol Stop: 06/08/25 12:10 Last Admin: 06/08/25 12:41 Dose: 4 mg Documented By: TOR Prochlorperazine Edisylate (Prochlorperazine Inj 5 Mg/Ml Vial 2 Ml) 10 mg IV X1 ONE; Protocol Stop: 06/08/25 13:43 Last Admin: 06/08/25 14:10 Dose: 10 mg Documented By: CLARI See above Consultations Consultation(s) initiated? (list below): No Diagnosis Nausea Differential Diagnosis: gastroenteritis, drug-induced nausea and vomiting and dehydration Most likely diagnosis given after review of the tests above:: Nausea and vomiting Hypokalemia Admission Indicated Admission indicated?: not indicated Explain why admission is indicated or not indicated:: Signed out pending final disposition Admission Request Was there a request for admission?: No Disposition Plan Disposition Plan: other (specify) (Care signed out to Dr. Márquez ) Discharge Plan Prescriptions/Referrals Prescriptions/Med Rec: No Action tramadol-acetaminophen [Ultracet] 37.5-325 mg tablet 1 tab PO Q6H PRN (Reason: pain) Qty: 30 0RF hydrocodone-acetaminophen 5-325 mg tablet 1 tab PO Q8H MDD 3 tab PRN (Reason: pain) Qty: 20 0RF lorazepam [Ativan] 1 mg tablet 1 mg PO BID MDD 2 PRN (Reason: vomiting) Qty: 20 0RF Referrals: Yessi Williamson PA-C ([facility]) [Primary Care Provider] - In 1 week Problem List Clinical Impression: Acute gastroenteritis, Dehydration, Acute hypokalemia Patient/Caregiver Discharge Instructions Print Language: Luxembourgish
--- NOTE | 2025-06-08 18:36 | PD.EDADDENDU ---
Emergency Room Addendum <Celine Aparicio - Last Filed: 06/08/25 18:46> Addendum Narrative: 1800: Care assumed from Dr. Pak (emergency physician). Past medical, surgical, social and family history reviewed. Vitals and home medications reviewed. Results and treatment plan discussed. I will assume the care of the patient at this time and will follow the patient, pending PO challenge. The following addendum documentation note is intended to reflect any pending information, findings, or radiology results not included in the patient?s initial chart by the previous shift scribe. <Lane MárquezDO - Last Filed: 06/08/25 20:33> Addendum Narrative: 1800: Care assumed from Dr. Pak (emergency physician). Past medical, surgical, social and family history reviewed. Vitals and home medications reviewed. Results and treatment plan discussed. I will assume the care of the patient at this time and will follow the patient, pending PO challenge. The following addendum documentation note is intended to reflect any pending information, findings, or radiology results not included in the patient?s initial chart by the previous shift scribe. Patient had an increased anion gap metabolic acidosis on the original chemistry panel. Patient was hydrated with a couple liters of normal saline. I repeated a basic metabolic panel which was essentially normal. There is no further increased anion gap metabolic acidosis. Patient looks better and feels well and wishes to go home. This case was signed out to me pending p.o. challenge which the patient passed. Patient will be discharged to take Zofran as prescribed and to follow-up with primary care. Return to ER as needed or if condition worsens.
[2025-06-08 18:40] VITALS: BP 120/80; PULSE 98; RESP 16; TEMP 37.2; O2SAT 97
--- NOTE | 2025-06-08 18:41 | PC.NURSE ---
pt tolerated 8oz of water at this time. no vomiting
[2025-06-08] MEDS: PANTOPRAZOLE 40 MG TABLET PO (19:39)
[2025-06-08] MEDS: FAMOTIDINE 20 MG TABLET 40 MG PO (19:39)
[2025-06-08 20:01] LABS: Anion Gap 15 (7-16); BUN/Creatinine Ratio 30 Ratio (12-20); Blood Urea Nitrogen 27 mg/dL (9-23); Calcium 8.7 mg/dL (8.3-10.6); Carbon Dioxide 25.0 mMol/L (20.0-31.0); Chloride 97 mMol/L (98-107); Creatinine (Component) 0.9 mg/dL (0.6-1.3); Estimated Creatinine Clearance 70.3 mL/min (>60); Glucose 97 mg/dL (74-106); Osmolality,Calculated 278 (275-295); Potassium 3.3 mMol/L (3.4-5.1); Sodium 137 mMol/L (136-145); eGFR > 60 See Note
== END 2025-06-08 20:39 | disposition home or self-care (01) ==
PROVIDERS: Emergency Medicine; Nurse Practitioner Family; Emergency Provider Family Medicine; PCP Nurse Practitioner Family
DX: E86.0 Dehydration (principal); E87.6 Hypokalemia; K52.9 Noninfective gastroenteritis and colitis, unspecified
CPT/HCPCS: 36415; 74177; 80048; 80053; 80307; 81001; 81025; 82803; 83690; 85025; 96361; 96365; 96366; 99283; A4649; J0780; J3480; J7120; Q0162; Q9967; A9270